=== PATIENT | female | born 1935 | race Caucasian/White ===

== ENCOUNTER 2017-06-10 13:22 | Inpatient (IN) | payer MEDICARE, OTHER, MEDICAID ==
[2017-06-10] MEDS ORDERED: Acetaminophen 325 MG Tab PO PRN (13:32)
[2017-06-10] MEDS ORDERED: Ibuprofen 200 MG Tab PO PRN (13:32)
[2017-06-10] MEDS ORDERED: Ondansetron 4 MG/2 ML SDV IV PRN (13:32)
[2017-06-10] MEDS ORDERED: Enoxaparin 30 MG/0.3 ML Syringe SUBCUT SCH (13:45)
[2017-06-10] MEDS ORDERED: fentaNYL 100 MCG/2 ML SDV IVPUSH ONE (13:57)
[2017-06-10] MEDS: Furosemide 20 MG/2 ML VIAL IVPUSH SCH (14:22)
--- NOTE | 2017-06-10 14:23 | PCM.PN ---
- General Info Date of Service: 06/10/17 Functional Status: Reports: Other (Pain LLE. ) - Review of Systems General: Reports: No Symptoms HEENT: Reports: No Symptoms Pulmonary: Reports: No Symptoms Cardiovascular: Reports: Edema Gastrointestinal: Reports: No Symptoms Genitourinary: Reports: No Symptoms Musculoskeletal: Reports: Leg Pain (LLE) Skin: Reports: Other (Pressure wound Left heel/boil. Wound is open.) Neurological: Reports: Confusion Psychiatric: Reports: No Symptoms - Patient Data Med Orders - Current: Current Medications Acetaminophen (Tylenol) 650 mg PO Q4H PRN PRN Reason: Pain (Mild 1-3)/fever Ceftriaxone Sodium (Rocephin) 1 gm IVPUSH Q24H [facility] Enoxaparin Sodium (Lovenox) 30 mg SUBCUT Q24H [facility] Fentanyl (Sublimaze) 50 mcg IVPUSH Q4H [facility] Furosemide (Lasix) 20 mg IVPUSH Q24H [facility] Clindamycin Phosphate 300 mg/ (Premix) 50 mls @ 100 mls/hr IV Q8H [facility] Sodium Chloride (Normal Saline) 1,000 mls @ 100 mls/hr IV ASDIRECTED [facility] Ibuprofen (Motrin) 600 mg PO Q6H PRN PRN Reason: Pain (mild 1-3) Insulin Aspart (Novolog) 0 unit SUBCUT WITHMEALSANDBED [facility] PRN Reason: Protocol Insulin Detemir (Levemir) 20 unit SUBCUT DAILY [facility] Ondansetron HCl (Zofran) 4 mg IV Q6H PRN PRN Reason: Nausea/Vomiting Discontinued Medications Enoxaparin Sodium (Lovenox) 30 mg SUBCUT Q24H [facility] Last Admin: 06/10/17 14:01 Dose: Not Given Fentanyl (Sublimaze) 25 mcg IVPUSH ONETIME ONE Stop: 06/10/17 13:58 - Exam General: Alert, Cooperative, No Acute Distress Neck: Supple Lungs: Clear to Auscultation, Normal Respiratory Effort Cardiovascular: Regular Rate, Regular Rhythm, Murmurs GI/Abdominal Exam: Soft, Non-Tender Back Exam: Normal Inspection, Full Range of Motion Extremities: Normal Range of Motion, Non-Tender, Normal Capillary Refill, Pedal Edema (BUE. BLE. +2. ), Leg Pain (LLE), Other Peripheral Pulses: 2+: Brachial (L), Brachial (R), Popliteal (L), Popliteal (R) , Posterior Tibial (L), Posterior Tibial (R), Dorsalis Pedis (L), Dorsalis Pedis (R) Skin: Warm, Dry, Other (wound left heel. Boil has opened and draining scant blood. ) Neurological: No New Focal Deficit Psy/Mental Status: Alert, Normal Affect, Normal Mood - Problem List Review Problem List Initiated/Reviewed/Updated: Yes - My Orders Last 24 Hours: My Active Orders 06/10/17 13:27 CULTURE WOUND [RM] Routine 06/10/17 13:32 Bedrest Bathroom Privileges [RC] .PRN Blood Glucose Check, Bedside [RC] WITHMEALSANDBED Intake and Output [RC] .PRN Urinary Catheter Assessment [RC] [id number] Acetaminophen [Tylenol] 650 mg PO Q4H PRN Ibuprofen [Motrin] 600 mg PO Q6H PRN Ondansetron [Zofran] 4 mg IV Q6H PRN Resuscitation Status Routine 06/10/17 13:33 Patient Status [ADT] Routine Oxygen Therapy [RC] .PRN Vital Signs [RC] 0800,[id number],199906/10/17 13:35 Height and Weight [RC] WEEKLY 06/10/17 13:36 Notify Provider Vital Signs [RC] .PRN 06/10/17 13:45 Sodium Chloride 0.9% [Normal Saline] 1,000 ml IV ASDIRECTED 06/10/17 14:00 Furosemide [Lasix] 20 mg IVPUSH Q24H 06/10/17 14:13 Air Overlay [Pressure Reduction Mattress] [OM.PC] Routine 06/10/17 16:00 Clindamycin Phosphate in D5W [Cleocin in D5W] 300 mg Premix Bag 1 bag IV Q8H fentaNYL [Sublimaze] 50 mcg IVPUSH Q4H 06/10/17 17:30 Insulin Aspart [NovoLOG] See Protocol SUBCUT WITHMEALSANDBED 06/10/17 Dinner Mechanical Soft Diet [DIET] 06/11/17 08:00 Enoxaparin [Lovenox] 30 mg SUBCUT Q24H Insulin Detemir [Levemir] 20 unit SUBCUT DAILY cefTRIAXone [Rocephin] 1 gm IVPUSH Q24H - Plan Plan:: This patient was swung today. She is staying in the hospital due to continued wound, abx treatment, and fluids for renal insufficiency.This patient today is alert. She is easily aroused. The patient today does have more edema, will restart her Lasix. The patient family is in the room with the patient. They have asked about CT scan of the leg instead of an MRI. I called and spoke to radiologist At this time he would not do the CT, due to having MRA on Sunday already. Also, her renal function has been elevated. I discussed this with patient family. We are in agreement that the patient will not have a CT done of the LLE. We will continue her treatment plan with abx. Patient family has requested Motrin for her pain and swelling as well. I have added this as needed. +2, cap refill <2 sec, sensory/motor function intact. I have ordered a culture of the wound.
[2017-06-10] MEDS: Clindamycin Phosphate in D5W 300 MG in Premix Bag 1 BAG IV SCH ×2 (17:35)
[2017-06-10] MEDS: fentaNYL 100 MCG/2 ML SDV IVPUSH SCH ×2 (17:35→20:08)
[2017-06-10] MEDS: Insulin Aspart 100 Units/ML 3 ML Pen SUBCUT SCH ×2 (17:36→20:09)
[2017-06-10] MEDS: Sodium Chloride 0.9% 1,000 ML IV SCH (17:52)
[2017-06-11] MEDS: fentaNYL 100 MCG/2 ML SDV IVPUSH SCH ×6 (00:01→20:17)
[2017-06-11] MEDS: Clindamycin Phosphate in D5W 300 MG in Premix Bag 1 BAG IV SCH ×6 (00:01→16:24)
[2017-06-11] MEDS: Sodium Chloride 0.9% 1,000 ML IV SCH ×2 (04:58→15:32)
[2017-06-11] MEDS: cefTRIAXone 1 GM Vial IVPUSH SCH (08:20)
[2017-06-11] MEDS: Insulin Aspart 100 Units/ML 3 ML Pen SUBCUT SCH ×4 (08:22→21:21)
[2017-06-11] MEDS: Insulin Detemir 100 Units/ML 3 ML Pen SUBCUT SCH (08:24)
[2017-06-11] MEDS: Enoxaparin 30 MG/0.3 ML Syringe SUBCUT SCH (08:24)
[2017-06-11] MEDS: Furosemide 20 MG/2 ML VIAL IVPUSH SCH (13:50)
[2017-06-12] MEDS: fentaNYL 100 MCG/2 ML SDV IVPUSH SCH ×7 (00:17→23:32)
[2017-06-12] MEDS: Clindamycin Phosphate in D5W 300 MG in Premix Bag 1 BAG IV SCH ×8 (00:17→23:32)
[2017-06-12 07:57] LABS: CHLORIDE,CL 108 mEq/L (98-106); SODIUM,NA 143 mEq/L (136-145)
[2017-06-12] MEDS: Enoxaparin 30 MG/0.3 ML Syringe SUBCUT SCH (08:21)
[2017-06-12] MEDS: cefTRIAXone 1 GM Vial IVPUSH SCH (08:21)
[2017-06-12] MEDS: Insulin Detemir 100 Units/ML 3 ML Pen SUBCUT SCH (08:23)
[2017-06-12] MEDS: Insulin Aspart 100 Units/ML 3 ML Pen SUBCUT SCH ×4 (08:28→20:52)
[2017-06-12] MEDS: Sodium Chloride 0.9% 1,000 ML IV SCH (09:59)
[2017-06-12] MEDS: Furosemide 20 MG/2 ML VIAL IVPUSH SCH (14:11)
[2017-06-13] MEDS: fentaNYL 100 MCG/2 ML SDV IVPUSH SCH ×4 (04:07→17:46)
[2017-06-13] MEDS: Sodium Chloride 0.9% 1,000 ML IV SCH (06:53)
[2017-06-13] MEDS: Insulin Detemir 100 Units/ML 3 ML Pen SUBCUT SCH (09:14)
[2017-06-13] MEDS: Enoxaparin 30 MG/0.3 ML Syringe SUBCUT SCH (09:15)
[2017-06-13] MEDS: Insulin Aspart 100 Units/ML 3 ML Pen SUBCUT SCH ×4 (09:16→21:01)
[2017-06-13] MEDS: Clindamycin Phosphate in D5W 300 MG in Premix Bag 1 BAG IV SCH ×4 (09:18→17:46)
[2017-06-13] MEDS: cefTRIAXone 1 GM Vial IVPUSH SCH (09:18)
[2017-06-13] MEDS: Furosemide 20 MG/2 ML VIAL IVPUSH SCH (13:02)
[2017-06-13] MEDS: Zinc Oxide 20% Oint 56.7 GM Tube TOP PRN (19:00)
[2017-06-13] MEDS: fentaNYL 100 MCG/2 ML SDV IVPUSH PRN (22:42)
[2017-06-14] MEDS: Clindamycin Phosphate in D5W 300 MG in Premix Bag 1 BAG IV SCH ×8 (00:15→23:46)
[2017-06-14] MEDS: fentaNYL 100 MCG/2 ML SDV IVPUSH PRN ×3 (02:45→18:22)
[2017-06-14] MEDS: cefTRIAXone 1 GM Vial IVPUSH SCH (08:32)
[2017-06-14] MEDS: Enoxaparin 30 MG/0.3 ML Syringe SUBCUT SCH (08:32)
[2017-06-14] MEDS: Insulin Detemir 100 Units/ML 3 ML Pen SUBCUT SCH (08:32)
[2017-06-14] MEDS: Insulin Aspart 100 Units/ML 3 ML Pen SUBCUT SCH ×4 (08:34→20:51)
[2017-06-14] MEDS ORDERED: Insulin Detemir 100 Units/ML 3 ML Pen SUBCUT ONE (08:45)
[2017-06-14] MEDS ORDERED: fentaNYL 100 MCG/2 ML SDV IVPUSH PRN ×2 (11:02→11:03)
[2017-06-14] MEDS: fentaNYL 12 MCG/HR Transdermal Patch TRDERM SCH (12:14)
[2017-06-15] MEDS: fentaNYL 100 MCG/2 ML SDV IVPUSH PRN ×2 (03:36→14:54)
[2017-06-15] MEDS ORDERED: Insulin Detemir 100 Units/ML 3 ML Pen SUBCUT SCH (08:00)
[2017-06-15] MEDS: cefTRIAXone 1 GM Vial IVPUSH SCH (08:12)
[2017-06-15] MEDS: Enoxaparin 30 MG/0.3 ML Syringe SUBCUT SCH (08:12)
[2017-06-15] MEDS: Insulin Aspart 100 Units/ML 3 ML Pen SUBCUT SCH ×4 (08:30→21:00)
[2017-06-15] MEDS: Clindamycin Phosphate in D5W 300 MG in Premix Bag 1 BAG IV SCH ×6 (08:30→23:55)
[2017-06-15] MEDS: Insulin Detemir 100 Units/ML 3 ML Pen SUBCUT SCH (08:31)
[2017-06-16] MEDS: Enoxaparin 30 MG/0.3 ML Syringe SUBCUT SCH (07:35)
[2017-06-16] MEDS: Clindamycin Phosphate in D5W 300 MG in Premix Bag 1 BAG IV SCH ×4 (07:35→15:56)
[2017-06-16] MEDS: cefTRIAXone 1 GM Vial IVPUSH SCH (07:35)
[2017-06-16] MEDS: Insulin Aspart 100 Units/ML 3 ML Pen SUBCUT SCH ×4 (07:47→20:38)
[2017-06-16] MEDS: Insulin Detemir 100 Units/ML 3 ML Pen SUBCUT SCH (07:48)
[2017-06-17] MEDS: Clindamycin Phosphate in D5W 300 MG in Premix Bag 1 BAG IV SCH ×6 (00:09→16:14)
[2017-06-17] MEDS: Enoxaparin 30 MG/0.3 ML Syringe SUBCUT SCH (07:56)
[2017-06-17] MEDS: cefTRIAXone 1 GM Vial IVPUSH SCH (07:56)
[2017-06-17] MEDS: Insulin Aspart 100 Units/ML 3 ML Pen SUBCUT SCH ×4 (07:57→20:24)
[2017-06-17] MEDS: Insulin Detemir 100 Units/ML 3 ML Pen SUBCUT SCH (07:58)
[2017-06-17] MEDS: fentaNYL 12 MCG/HR Transdermal Patch TRDERM SCH (08:31)
[2017-06-17] MEDS: fentaNYL 100 MCG/2 ML SDV IVPUSH PRN (10:59)
[2017-06-17] MEDS: Zinc Oxide 20% Oint 56.7 GM Tube TOP PRN ×2 (11:00→15:20)
[2017-06-18] MEDS: Clindamycin Phosphate in D5W 300 MG in Premix Bag 1 BAG IV SCH ×2 (00:30)
[2017-06-18] MEDS: Insulin Aspart 100 Units/ML 3 ML Pen SUBCUT SCH (07:38)
[2017-06-18] MEDS: Insulin Detemir 100 Units/ML 3 ML Pen SUBCUT SCH (08:53)
[2017-06-18] MEDS: Enoxaparin 30 MG/0.3 ML Syringe SUBCUT SCH (08:53)
[2017-06-18] MEDS: cefTRIAXone 1 GM Vial IVPUSH SCH (08:54)
[2017-06-18 09:05] VITALS: BP 114/50
--- NOTE | 2017-06-18 21:17 | PCM.DCSUM1 ---
Discharge Summary - Hospital Course Free Text/Narrative:: Patient presented to ER per EMS with unresponsiveness, hypotension. Had been up and ready to eat breakfast when became unresponsive. No response was noted to verbal stimuli. Did not appear to be in any respiratory distress on arrival. Left leg was found to be very edematous but family reported that was somewhat of a chronic concern since December. Has had an ultrasound for this prior that was negative. Family has been caring for her for several months due to weakness and dementia. Lab in the ER did show concern for blood clot in leg with concern for PE. Blood pressure quite low despite fluid boluses. Family did opt for ongoing fluids and antibiotics but to hold off on US and CT initially until more stable. During acute stay, ultrasound was done which was negative. [place] to have cellulitis in leg and IV antibiotics switched to vancomycin and cleocin. Patient did respond after approximately 24 hours so more studies were done. Did have a fair amount of discomfort with this leg, heel and pain meds used to cover. Was found to have a large blood-filled blister on her left heel on admit and during the night with turning and changing, a large ecchymotic area was noted on her gluteal region. Transferred to swing bed for ongoing antibiotics, pain control and PT. - Discharge Data Discharge Date: 06/18/17 Discharge Disposition: DC/Tfer to [facility] Condition: Poor - Patient Summary/Data Complications: none Consults: Consultations 06/12/17 11:05 Consult to Physical Therapy [PT Evaluation and Treatment] [CONS] Routine Hospital Course: Swing bed stay uneventful. Did discuss obtaining an MRI of the leg per family request but unable to due to pacemaker. Advised that could proceed with bone scan but unlikely patient would tolerate length of test and family informed wouldn't change course of treatment. Had good improvement of her swelling, redness and discomfort in her leg with IV antibiotics. Switched to fentanyl patch for shelter pain management. Blood sugars variable during stay, Levemir adjusted for this and sliding scale given. Fed by family during stay and tolerated moderate amount of intake. Heel blister did open up and had a moderate amount of drainage, wound ulcer healing, pressure 2. Buttock region did remain open, large, pressure 2 ulcer with some skin sloughing. Remained very weak, unable to bear weight, options of discharge discussed with family and chose to proceed with [facility] placement. - Patient Instructions Diet: Usual Diet as Tolerated Activity: As Tolerated - Discharge Plan Prescriptions/Med Rec: Acetaminophen [Tylenol] 650 mg PO Q4H PRN #60 tablet PRN Reason: Pain fentaNYL [Duragesic] 12 mcg TRDERM Q72H #10 patch Ibuprofen [Motrin] 600 mg PO Q6H PRN #60 tablet PRN Reason: Fever Insulin Detemir [Levemir] 25 unit SUBCUT DAILY #1 pen Zinc Oxide 56.7 gm TOP TID PRN #1 tube PRN Reason: Wound Half-Way Medications: Home Meds Furosemide [Lasix] 40 mg PO DAILY #30 tablet 10/23/13 [Rx] Lisinopril 10 mg PO DAILY 10/30/14 [History] Acetaminophen [Tylenol] 650 mg PO Q4H PRN #60 tablet 06/18/17 [Rx] Ibuprofen [Motrin] 600 mg PO Q6H PRN #60 tablet 06/18/17 [Rx] Insulin Detemir [Levemir] 25 unit SUBCUT DAILY #1 pen 06/18/17 [Rx] Zinc Oxide 56.7 gm TOP TID PRN #1 tube 06/18/17 [Rx] fentaNYL [Duragesic] 12 mcg TRDERM Q72H #10 patch 06/18/17 [Rx] - Discharge Summary/Plan Comment DC Time >30 min.: Yes Discharge Summary/Plan Comment: Transfer to [facility]. Time spent with family and evaluation 15 minutes Time for orders 10 minutes Documentation time 10 minutes - General Info Date of Service: 06/18/17 Admission Dx/Problem (Free Text: Altered Mental Status Vulnerable Adult Diabetes Type 2 Heel Ulcer Functional Status: Reports: Pain Controlled, Tolerating Diet. Denies: Ambulating - Review of Systems General: Reports: Weakness, Fatigue HEENT: Reports: No Symptoms Pulmonary: Denies: Shortness of Breath, Cough Cardiovascular: Denies: Chest Pain, Edema, Lightheadedness Gastrointestinal: Denies: Abdominal Pain, Nausea, Vomiting Genitourinary: Reports: Incontinence Musculoskeletal: Reports: No Symptoms Skin: Reports: Other (pressure ulcers) Neurological: Reports: Confusion Psychiatric: Reports: Confusion - Patient Data Vitals - Most Recent: Last Vital Signs Temp 97.4 F 06/18/17 08:00 Pulse 90 06/18/17 08:00 Resp 18 06/18/17 08:00 BP 114/50 L 11/13/17 08:00 Pulse Ox 97 06/18/17 08:00 Weight - Most Recent: 159 lb 14.4 oz I&O - Last 24 hours: Intake & Output 06/18/17 06/18/17 06/18/17 06:59 14:59 22:59 Output Total 1400 Balance -1400 Lab Results - Last 24 hrs: Laboratory Results - last 24 hr 06/17/17 06/18/17 Range/Units 20:05 07:35 POC Glucose 202 H 68 L (75-105) mg/dl Med Orders - Current: Current Medications Discontinued Medications Acetaminophen (Tylenol) 650 mg PO Q4H PRN PRN Reason: Pain (Mild 1-3)/fever Ceftriaxone Sodium (Rocephin) 1 gm IVPUSH Q24H [facility] Last Admin: 06/18/17 08:54 Dose: Not Given Enoxaparin Sodium (Lovenox) 30 mg SUBCUT Q24H [facility] Last Admin: 06/10/17 14:01 Dose: Not Given Enoxaparin Sodium (Lovenox) 30 mg SUBCUT Q24H [facility] Last Admin: 06/18/17 08:53 Dose: 30 mg Fentanyl (Sublimaze) 50 mcg IVPUSH Q4H [facility] Last Admin: 06/13/17 17:46 Dose: Not Given Fentanyl (Sublimaze) 25 mcg IVPUSH ONETIME ONE Stop: 06/10/17 13:58 Last Admin: 06/10/17 14:22 Dose: 25 mcg Fentanyl (Sublimaze) 50 mcg IVPUSH Q4H PRN PRN Reason: Pain (moderate 4-6) Last Admin: 06/14/17 09:50 Dose: 50 mcg Fentanyl (Duragesic) 12 mcg TRDERM Q72H [facility] Last Admin: 06/17/17 08:31 Dose: 12 mcg Fentanyl (Sublimaze) 25 mcg IVPUSH Q4H PRN PRN Reason: Pain (moderate 4-6) Fentanyl (Sublimaze) 12.5 mcg IVPUSH Q4H PRN PRN Reason: Pain (moderate 4-6) Fentanyl (Sublimaze) 12.5 mcg IVPUSH Q6H PRN PRN Reason: Pain (moderate 4-6) Last Admin: 06/17/17 10:59 Dose: 12.5 mcg Furosemide (Lasix) 20 mg IVPUSH Q24H [facility] Last Admin: 06/13/17 13:02 Dose: 20 mg Clindamycin Phosphate 300 mg/ (Premix) 50 mls @ 100 mls/hr IV Q8H [facility] Stop: 06/18/17 00:30 Last Admin: 06/18/17 00:30 Dose: Not Given Sodium Chloride (Normal Saline) 1,000 mls @ 50 mls/hr IV ASDIRECTED [facility] Last Admin: 06/13/17 06:53 Dose: 50 mls/hr Ibuprofen (Motrin) 600 mg PO Q6H PRN PRN Reason: Pain (mild 1-3) Insulin Aspart (Novolog) 0 unit SUBCUT WITHMEALSANDBED [facility] PRN Reason: Protocol Last Admin: 06/14/17 08:34 Dose: 4 unit Insulin Aspart (Novolog) 0 unit SUBCUT WITHMEALSANDBED [facility] PRN Reason: Protocol Last Admin: 06/18/17 07:38 Dose: Not Given Insulin Detemir (Levemir) 20 unit SUBCUT DAILY [facility] Last Admin: 06/14/17 08:32 Dose: 20 unit Insulin Detemir (Levemir) 10 unit SUBCUT ONETIME ONE Stop: 06/14/17 08:46 Last Admin: 06/14/17 12:11 Dose: 10 units Insulin Detemir (Levemir) 30 unit SUBCUT DAILY [facility] Last Admin: 06/15/17 09:28 Dose: Not Given Insulin Detemir (Levemir) 25 unit SUBCUT DAILY [facility] Last Admin: 06/18/17 08:53 Dose: 25 unit Multi-Ingred Cream/Lotion/Oil/Oint (Zinc Oxide) 0 gm TOP TID PRN PRN Reason: Wound Care Last Admin: 06/17/17 15:20 Dose: 1 applic Ondansetron HCl (Zofran) 4 mg IV Q6H PRN PRN Reason: Nausea/Vomiting - Exam General: Reports: Alert, Oriented HEENT: Reports: Mucous Membr. Moist/[place] Neck: Reports: Supple Lungs: Reports: Decreased Breath Sounds Cardiovascular: Reports: Regular Rate, Regular Rhythm GI/Abdominal Exam: Normal Bowel Sounds, Soft, Non-Tender Extremities: Normal Inspection, No Pedal Edema Wound/Incisions: Reports: Other (left heel stage 2 pressure ulcer, slowly improving; stage 2 pressure ulcer to gluteal region, skin red, some sloughing but slowly improving.) Psy/Mental Status: Reports: Alert, Normal Affect, Normal Mood *Q Meaningful Use (DIS) - VTE *Q VTE Criteria *Q: - Stroke *Q Stroke Criteria *Q: - AMI *Q AMI Criteria *Q:
--- NOTE | 2017-06-22 15:35 | PCM.DCSUM1 ---
Discharge Summary - Hospital Course HPI Initial Comments: This patient was swung today. She is staying in the hospital due to continued wound, abx treatment, and fluids for renal insufficiency.This patient today is alert. She is easily aroused. The patient today does have more edema, will restart her Lasix. The patient family is in the room with the patient. They have asked about CT scan of the leg instead of an MRI. I called and spoke to radiologist At this time he would not do the CT, due to having MRA on Sunday already. Also, her renal function has been elevated. I discussed this with patient family. We are in agreement that the patient will not have a CT done of the LLE. We will continue her treatment plan with abx. Patient family has requested Motrin for her pain and swelling as well. I have added this as needed. +2, cap refill <2 sec, sensory/motor function intact. I have ordered a culture of the wound. - Discharge Data Discharge Date: 06/10/17 Discharge Disposition: DC/Tfer W/I Hosp To [facility] Condition: Poor - Patient Summary/Data Consults: Consultations 06/12/17 11:05 Consult to Physical Therapy [PT Evaluation and Treatment] [CONS] Routine - Patient Instructions Diet: Usual Diet as Tolerated Activity: As Tolerated - Discharge Plan Prescriptions/Med Rec: Acetaminophen [Tylenol] 650 mg PO Q4H PRN #60 tablet PRN Reason: Pain fentaNYL [Duragesic] 12 mcg TRDERM Q72H #10 patch Ibuprofen [Motrin] 600 mg PO Q6H PRN #60 tablet PRN Reason: Fever Insulin Detemir [Levemir] 25 unit SUBCUT DAILY #1 pen Zinc Oxide 56.7 gm TOP TID PRN #1 tube PRN Reason: Wound Detention Medications: Home Meds Furosemide [Lasix] 40 mg PO DAILY #30 tablet 10/23/13 [Rx] Lisinopril 10 mg PO DAILY 10/30/14 [History] Acetaminophen [Tylenol] 650 mg PO Q4H PRN #60 tablet 06/18/17 [Rx] Ibuprofen [Motrin] 600 mg PO Q6H PRN #60 tablet 06/18/17 [Rx] Insulin Detemir [Levemir] 25 unit SUBCUT DAILY #1 pen 06/18/17 [Rx] Zinc Oxide 56.7 gm TOP TID PRN #1 tube 06/18/17 [Rx] fentaNYL [Duragesic] 12 mcg TRDERM Q72H #10 patch 06/18/17 [Rx] - Discharge Summary/Plan Comment DC Time >30 min.: No - General Info Functional Status: Reports: Tolerating Diet, Other (In pain) - Review of Systems General: Reports: No Symptoms HEENT: Reports: No Symptoms Pulmonary: Reports: No Symptoms Cardiovascular: Reports: No Symptoms Gastrointestinal: Reports: No Symptoms Genitourinary: Reports: No Symptoms Skin: Reports: Other (would left heel) Neurological: Reports: No Symptoms Psychiatric: Reports: No Symptoms - Patient Data Vitals - Most Recent: Last Vital Signs Temp 97.4 F 06/18/17 08:00 Pulse 90 06/18/17 08:00 Resp 18 06/18/17 08:00 BP 114/50 L 06/18/17 08:00 Pulse Ox 97 06/18/17 08:00 Weight - Most Recent: 159 lb 14.4 oz Med Orders - Current: Current Medications Discontinued Medications Acetaminophen (Tylenol) 650 mg PO Q4H PRN PRN Reason: Pain (Mild 1-3)/fever Ceftriaxone Sodium (Rocephin) 1 gm IVPUSH Q24H [facility] Last Admin: 06/18/17 08:54 Dose: Not Given Enoxaparin Sodium (Lovenox) 30 mg SUBCUT Q24H [facility] Last Admin: 06/10/17 14:01 Dose: Not Given Enoxaparin Sodium (Lovenox) 30 mg SUBCUT Q24H [facility] Last Admin: 06/18/17 08:53 Dose: 30 mg Fentanyl (Sublimaze) 50 mcg IVPUSH Q4H [facility] Last Admin: 06/13/17 17:46 Dose: Not Given Fentanyl (Sublimaze) 25 mcg IVPUSH ONETIME ONE Stop: 06/10/17 13:58 Last Admin: 06/10/17 14:22 Dose: 25 mcg Fentanyl (Sublimaze) 50 mcg IVPUSH Q4H PRN PRN Reason: Pain (moderate 4-6) Last Admin: 06/14/17 09:50 Dose: 50 mcg Fentanyl (Duragesic) 12 mcg TRDERM Q72H [facility] Last Admin: 06/17/17 08:31 Dose: 12 mcg Fentanyl (Sublimaze) 25 mcg IVPUSH Q4H PRN PRN Reason: Pain (moderate 4-6) Fentanyl (Sublimaze) 12.5 mcg IVPUSH Q4H PRN PRN Reason: Pain (moderate 4-6) Fentanyl (Sublimaze) 12.5 mcg IVPUSH Q6H PRN PRN Reason: Pain (moderate 4-6) Last Admin: 06/17/17 10:59 Dose: 12.5 mcg Furosemide (Lasix) 20 mg IVPUSH Q24H [facility] Last Admin: 06/13/17 13:02 Dose: 20 mg Clindamycin Phosphate 300 mg/ (Premix) 50 mls @ 100 mls/hr IV Q8H [facility] Stop: 06/18/17 00:30 Last Admin: 06/18/17 00:30 Dose: Not Given Sodium Chloride (Normal Saline) 1,000 mls @ 50 mls/hr IV ASDIRECTED [facility] Last Admin: 06/13/17 06:53 Dose: 50 mls/hr Ibuprofen (Motrin) 600 mg PO Q6H PRN PRN Reason: Pain (mild 1-3) Insulin Aspart (Novolog) 0 unit SUBCUT WITHMEALSANDBED [facility] PRN Reason: Protocol Last Admin: 06/14/17 08:34 Dose: 4 unit Insulin Aspart (Novolog) 0 unit SUBCUT WITHMEALSANDBED [facility] PRN Reason: Protocol Last Admin: 06/18/17 07:38 Dose: Not Given Insulin Detemir (Levemir) 20 unit SUBCUT DAILY [facility] Last Admin: 06/14/17 08:32 Dose: 20 unit Insulin Detemir (Levemir) 10 unit SUBCUT ONETIME ONE Stop: 06/14/17 08:46 Last Admin: 06/14/17 12:11 Dose: 10 units Insulin Detemir (Levemir) 30 unit SUBCUT DAILY [facility] Last Admin: 06/15/17 09:28 Dose: Not Given Insulin Detemir (Levemir) 25 unit SUBCUT DAILY [facility] Last Admin: 06/18/17 08:53 Dose: 25 unit Multi-Ingred Cream/Lotion/Oil/Oint (Zinc Oxide) 0 gm TOP TID PRN PRN Reason: Wound Care Last Admin: 06/17/17 15:20 Dose: 1 applic Ondansetron HCl (Zofran) 4 mg IV Q6H PRN PRN Reason: Nausea/Vomiting - Exam General: Reports: Alert, Cooperative Cardiovascular: Reports: Regular Rate, Regular Rhythm Back Exam: Reports: Normal Inspection, Full Range of Motion Extremities: Normal Inspection, Normal Capillary Refill Skin: Reports: Warm, Dry Wound/Incisions: Reports: Decubitis (left heel. coccyx.) Psy/Mental Status: Reports: Alert, Normal Affect, Normal Mood *Q Meaningful Use (DIS) - VTE *Q VTE Criteria *Q: - Stroke *Q Stroke Criteria *Q: - AMI *Q AMI Criteria *Q:
== END 2017-06-18 10:15 | DRG 603 ==
LOC: UNDOADMIN 13:22 → CC.MS 13:22 → UNDOADMIN 13:32 → CC.MS 13:33
PROVIDERS: ADMIT Nurse Practitioner; ATTEND Family Medicine
DX: L03.116 Cellulitis of left lower limb (principal); F03.90 Unspecified dementia, unspecified severity, without behavioral disturbance, psychotic disturbance, mood disturbance, and anxiety; R53.1 Weakness; R58 Hemorrhage, not elsewhere classified; L89.622 Pressure ulcer of left heel, stage 2; L89.302 Pressure ulcer of unspecified buttock, stage 2; N28.9 Disorder of kidney and ureter, unspecified; E11.9 Type 2 diabetes mellitus without complications; Z95.0 Presence of cardiac pacemaker; Z79.899 Other long term (current) drug therapy; Z79.4 Long term (current) use of insulin
CPT/HCPCS: 36415; 80048; 82962; 85025; 86140; 87070; 97597-GP; A9270-GY; J0696; J1650; J1940; J3010; J7030

== ENCOUNTER 2017-11-04 05:00 | Emergency (ER) | payer MEDICARE, OTHER, MEDICAID ==
[2017-11-04] MEDS ORDERED: EPINEPHrine 1:10,000 1 MG/10 ML Syringe IV ONE (05:01)
--- NOTE | 2017-11-04 06:25 | EDM.PDOC ---
ED HPI GENERAL MEDICAL PROBLEM - General Chief Complaint: CPR in Progress Stated Complaint: code blue Time Seen by Provider: 11/04/17 06:19 Source of Information: Reports: EMS, Family History Limitations: Reports: Other (Cardiac Arrest) - History of Present Illness INITIAL COMMENTS - FREE TEXT/NARRATIVE: This patient is an 82 year old female that arrives VIA EMS from [facility]. The EMS is the historian at time of arrival. They report that they arrived at patient home at 4:15am, with initial call to 911 was bleeding form the eyes. They report when they arrived on scene that the patient was unresponsive, agonal respirations, and Asystole with no shock advised. They in route established IV access, gave Epi 1mg x2, Inserted Antonio tube into airway, and applied Minerva for CPR. When the patient arrived in the ER, she had Minerva intact administering CPR. She arrived to our ER at 0605. The patient is mottled , cyanotic, pale, and cold to touch. The patient was placed on environmental monitoring specialist. EMS inserted IO for more IV access upon arrival into the ER. The patient has NS bolus hanging left hand IV. Patient rhythm is Paced no pulse upon arrival at rhythm check with minerva stopped. There is pulse from Minerva CPR, but during rhythm check there is no pulse. Epi 1mg IV was administered, CPR minerva continued, airway maintained by tie presser with ambu ventilation with a CO2 of 8 per tie presser Bashir. I then asked nurses to continue CPR and code, I went to waiting area and talked with bill in person and daughter CHRIS Brittany Mosley via cell phone. This was at 0515am, discussed with CHRIS and bill how her mother had to heart rhythm and was not breathing. I did explain that she has now been with no sign of life for 1 hour. Family wants to continue the code. I then returned back to the room at 0520, CPR continued, rhythm checked, pacer, but no pulse. Not shockable. At this time of 0625, No pulse, apneic, cyanotic, pale, mottled, cold to touch extremities and now cool core. [employer] used to discontinue pacemaker. Now, she is flat line Asystole. Code was discontinued at 0525. I talked with bill in person and daughter CHRIS via phone. I have explained patient is . They agree to discontinue the code. Rhythm stip obtained showing Asystole, Kig tube removed, patient cleaned up, family now to bedside to see patient. Discussed with POA home selection. She would like to discuss with home prior to releasing the body. Beverley PLATT will now talk with home and daughter CHRIS to release the body. The daughter reports the patient the last few days has complained of not generally feeling well. She reports she has had been feeling hot and cold. She reports she has had cough and increased shortness of breath the last few days. Onset: Today Onset Date: 11/04/17 Onset Time: 05:15 Duration: Hour(s): Severity: Severe Improves with: Reports: None Worsens with: Reports: None Treatments [employer]: Reports: CPR, Intubation (Antonio Tube), IV/IO, Other Medication(s ) (Epi IV x2. ), See EMS Report - Related Data Allergies Allergy/AdvReac Type Severity Reaction Status Date / Time No Known Allergies Allergy Verified 11/04/17 06:36 Home Meds: Home Meds Furosemide [Lasix] 40 mg PO DAILY #30 tablet 10/23/13 [Rx] Lisinopril 10 mg PO DAILY 10/30/14 [History] Acetaminophen [Tylenol] 650 mg PO Q4H PRN #60 tablet 06/18/17 [Rx] Ibuprofen [Motrin] 600 mg PO Q6H PRN #60 tablet 06/18/17 [Rx] Insulin Detemir [Levemir] 25 unit SUBCUT DAILY #1 pen 06/18/17 [Rx] Zinc Oxide 56.7 gm TOP TID PRN #1 tube 06/18/17 [Rx] fentaNYL [Duragesic] 12 mcg TRDERM Q72H #10 patch 06/18/17 [Rx] Past Medical History Cardiovascular History: Reports: High Cholesterol, Hypertension, NE, Pacemaker Endocrine/Metabolic History: Reports: Diabetes, Type II - Past Surgical History Cardiovascular Surgical History: Reports: Coronary Artery Bypass, Coronary Artery Stent Social & Family History - Family History Family Medical History: Noncontributory - Tobacco Use Smoking Status *Q: Never Smoker Years of Tobacco use: 5 Used Tobacco, but Quit: Yes Month/Year Tobacco Last Used: unknown Second Hand Smoke Exposure: No - Caffeine Use Caffeine Use: Reports: None - Alcohol Use Days Per Week of Alcohol Use: 0 - Recreational Drug Use Recreational Drug Use: No Drug Use in Last 12 Months: No - Living Situation & Occupation Living situation: Reports: with Family Occupation: Disabled ED ROS GENERAL - Review of Systems Review Of Systems: See Below Constitutional: Reports: Malaise (Per grandaughter "she has not been feeling well the last few days"), Other (Per grandaughter "been hot and cold the last few days") HEENT: Reports: Other (per daughter "she was bleeding from her eyes") Respiratory: Reports: Shortness of Breath (per daughter "she has been short of breath the last 3 days"), Cough (per daughter "has had a cough the last few days ") Endocrine: Reports: No Symptoms GI/Abdominal: Reports: No Symptoms : Reports: No Symptoms Musculoskeletal: Reports: No Symptoms Skin: Reports: No Symptoms Neurological: Reports: No Symptoms Psychiatric: Reports: No Symptoms Hematologic/Lymphatic: Reports: No Symptoms Immunologic: Reports: No Symptoms ED EXAM, CPR - Physical Exam Exam: See Below Limited By: Unresponsive, Other (Cardiac Arrest) General Appearance: Severe Distress, Other Eye Exam: Bilateral Eye: Abnormal Pupil (unresponsive) Ears: Normal External Exam, Normal Canal, Normal TMs Nose: Normal Inspection Throat/Mouth: Other (Antonio airway intact. ) Head: Atraumatic, Normocephalic Respiratory Chest: Other (apneic, mottled, cyanotic, all four extremeties cold. ) Cardiovascular: Absent Heart Sounds, CPR In Progress, Other (Asystole) GI/Abdominal Exam: Distended (Female) Exam: Deferred 0: Right Carotid, Left Carotid, Radial (R), Radial (L), Femoral (R), Femoral (L) , Posterior-Tibial (R), Posterior-Tibial (L), Dorsalis-Pedis (R), Dorsalis- Pedis (L) Extremities: Mottled, Other (all four extremeties cold to touch.) Neurological: Unresponsive Skin Exam: Mottled, Pallor, Wound/Incision (Left foot heel, pressure ulcer. ) Course - Orders/Labs/Meds Meds: Medications Discontinued Medications Generic Name Dose Route Start Last Admin Trade Name Freq PRN Reason Stop Dose Admin Epinephrine HCl Confirm 11/04/17 07:23 Epinephrine 1:10,000 Administered 11/04/17 07:24 Dose 3 mg .ROUTE .STK-MED ONE Departure - Departure Time of Disposition: 06:25 Disposition: 20 Preliminary Cause of *Q: Cardiac Arrest Clinical Impression: Cardiac arrest, - Discharge Information Referrals: Poli Chanel MD [Primary Care Provider] - Forms: ED Department Discharge - Assessment/Plan Plan: PLEASE SEE RN NOTE FOR PFSH. RELEASE TO HOME ONCE HAVE POA APPROVAL.
[2017-11-04] MEDS ORDERED: EPINEPHrine 1:10,000 1 MG/10 ML Syringe ONE (07:23)
== END 2017-11-04 07:30 | disposition expired ==
LOC: CC.ED 05:00
DX: I46.9 Cardiac arrest, cause unspecified (principal); E78.00 Pure hypercholesterolemia, unspecified; I10 Essential (primary) hypertension; I25.2 Old myocardial infarction; E11.9 Type 2 diabetes mellitus without complications; Z79.899 Other long term (current) drug therapy; Z87.891 Personal history of nicotine dependence
CPT/HCPCS: 96374; 99285; J0171